=== PATIENT | female | born 1950 | race Caucasian/White ===

== ENCOUNTER 2020-04-02 09:22 | Emergency (ER) | payer OTHER, MEDICAID ==
[~2020-04-02] VITALS: Ht 160 cm; Wt 131.5 kg
--- NOTE | 2020-04-02 09:35 | NUR ---
PATIENT TO ER #3
--- NOTE | 2020-04-02 09:40 | NUR ---
Pt c/o L second toe pain w/ redness x 3 days. Pt denies any trauma to the L foot. Pt has taken tylenol w/ relief. Pt denies any current pain when laying down. Pain 9/10 when bearing weight on L foot.
[2020-04-02] MEDS ORDERED: METF-380 PO (09:41)
[2020-04-02 09:42] VITALS: BP_SYST 139
[2020-04-02] MEDS ORDERED: PIOG30TA70 PO (09:42)
[2020-04-02] MEDS ORDERED: ASPI-524 PO (09:42)
[2020-04-02] MEDS ORDERED: LISI10TA PO (09:42)
[2020-04-02] MEDS ORDERED: GLIP2.5T3 PO (09:42)
--- NOTE | 2020-04-02 09:46 | NUR ---
PATIENT PRESENTS TO THE ER WITH THREE DAY HX OF PAIN AND SWELLING TO LEFT #2 TOE; SENT BY PMD TO R/O DVT; NO TRAUMA, NO OTHER REMARKABLE S/S
--- NOTE | 2020-04-02 11:15 | NUR ---
Patient given written and verbal discharge instructions and verbalizes understanding. ER Dr. Velazco discussed with patient the results and treatment provided. Patient in stable condition. ID arm band removed.
[2020-04-02 11:30] VITALS: BP_SYST 139
== END 2020-04-02 11:30 | disposition home or self-care (01) ==
LOC: SED 09:22 → EDBD 09:22 → SED 11:30
DX: S93.505A Unspecified sprain of left lesser toe(s), initial encounter (principal); I10 Essential (primary) hypertension; E11.9 Type 2 diabetes mellitus without complications; Z79.82 Long term (current) use of aspirin; Z79.899 Other long term (current) drug therapy; X58.XXXA Exposure to other specified factors, initial encounter; Y93.89 Activity, other specified; Y92.89 Other specified places as the place of occurrence of the external cause; Y99.8 Other external cause status
CPT/HCPCS: 93971; 99284